=== PATIENT | male | born 1940 | race Hispanic/Latino ===

== ENCOUNTER 2019-12-28 17:08 | Outpatient (CLI) | payer MEDICARE ==
--- NOTE | 2019-12-28 18:15 | RAD ---
Frontal and lateral imaging of the thoracic spine: 12/28/2019 COMPARISON: None HISTORY: Pain FINDINGS: Multilevel disc space narrowing with degenerative endplate change and anterior osteophyte f ormation noted within the cervical spine. Thoracic pedicles appear intact on frontal imaging. No significant anterolisthesis or retrolisthesis. No acute fracture is seen within the thoracic spine. IMPRESSION: Degenerative change as above.
--- NOTE | 2019-12-28 18:17 | RAD ---
Lumbar spine 3 views: 12/28/2019 COMPARISON: 08/23/2016 HISTORY: Back pain FINDINGS: Multilevel mild disc space narrowing with associated anterior osteophyte formation within t he lumbar spine, most prominent at L2-3. Multilevel mild lower lumbar spine facet hypertrophy. No acute fracture or evidence of dislocation. IMPRESSION: Multilevel degenerative change within the lumbar spine, not significantly changed when co mpared to the prior exam. No acute osseous abnormality. If there are radicular symptoms, lumbar spine MRI may be beneficial.
== END 2019-12-28 17:09 | disposition home or self-care (01) ==
LOC: MADRAD 17:08
PROVIDERS: ATTEND Family Medicine
DX: M54.9 Dorsalgia, unspecified (principal); M47.816 Spondylosis without myelopathy or radiculopathy, lumbar region; M50.30 Other cervical disc degeneration, unspecified cervical region; M25.78 Osteophyte, vertebrae
CPT/HCPCS: 72072; 72100

== ENCOUNTER 2021-09-04 12:16 | Outpatient (CLI) | payer MEDICARE | END 2021-09-04 12:17 | disposition home or self-care (01) | LOC: MADLAB 12:16 | PROVIDERS: ATTEND Family Medicine | DX: R41.3 Other amnesia (principal); R22.0 Localized swelling, mass and lump, head | CPT/HCPCS: 70450 ==

== ENCOUNTER 2023-08-14 15:48 | Emergency (ER) | payer OTHER ==
[~2023-08-14 15:48] MED LIST: Iopamidol 370 76% 100 ML VIAL ONE
[2023-08-14 16:24] LABS: #Basophils 0.1 thou/uL (0.0-0.2); #Eosinphils 0.2 thou/uL (0.0-0.7); #Lymphocytes 1.8 thou/uL (1.20-3.40); #Monocytes 0.6 thou/uL (0.11-0.59); #Neutrophils 5.7 thou/uL (1.40-6.50); %Basophils 1.1 % (0.0-1.0); %Eosinophils 2.4 % (0.0-10.0); %Lymphocytes 21.6 % (21.0-51.0); %Monocytes 6.7 % (0.0-10.0); %Neutrophils 68.3 % (42.0-75.0); Hematocrit 47.4 % (42.0-52.0); Hemoglobin 15.7 g/dL (14.0-18.0); Mean Corpuscular HGB CONC 33.1 g/dL (32.0-36.0); Mean Corpuscular Hemoglobin 31.4 pg (27.0-31.0); Mean Corpuscular Volume 94.7 fl (78.0-98.0); Mean Platelet Volume 10.8 fL (7.4-10.4); Platelet Count 224 10x3/uL (130-400); RBC Distribution Width 12.5 % (11.5-14.5); Red Blood Cell (RBC) Count 5.01 mill/uL (4.70-6.10); White Blood Cell (WBC) Count 8.3 10x3/uL (4.8-10.8)
[2023-08-14 16:38] LABS: ALT (SGPT) 15 U/L (8-55); AST (SGOT) 20 U/L (5-34); Albumin 4.4 g/dL (3.4-4.8); Alkaline Phosphatase 100 U/L (40-110); Anion Gap 17 mmol/L (10-20); BUN (Urea Nitrogen) 14 mg/dL (8.4-25.7); Bilirubin, Total 0.5 mg/dL (0.2-1.2); Calc. Creatinine Clearance 0 mL/min (70-130); Calcium 9.7 mg/dL (7.8-10.44); Carbon Dioxide 25 mmol/L (23-31); Chloride 104 mmol/L (98-107); Estimated GFR 70; Glucose 89 mg/dL (83-110); Magnesium 2.3 mg/dL (1.6-2.6); Potassium 4.2 mmol/L (3.5-5.1); Protein, Total 7.4 g/dL (5.8-8.1); Sodium 142 mmol/L (136-145)
[2023-08-14 16:39] LABS: Troponin I Less than 0.010 ng/mL (< 0.028)
[2023-08-14 18:10] LABS: Bilirubin Negative (Negative); Blood, Urine Negative (Negative); Clarity Clear (Clear); Glucose, Urine (Dipstick) Negative (Negative); Ketone, Urine Negative (Negative); Leukocyte Negative (Negative); Nitrite Negative (Negative); Protein, Urine (Dipstick) Negative (Neg-Trace); Urobilinogen 0.2 mg/dL (Less than 2)
[2023-08-14 18:11] LABS: CAUTI Indications for Culture Pelvic or flank pain
[2023-08-14 18:14] LABS: Bacteria/HPF Rare-Few HPF (None Seen); RBC/HPF 0-3 HPF (0-3); Squamous Epithelial None Seen HPF (0-3); Urine Culture Reflex No No; WBC/HPF None Seen HPF (0-3)
[2023-08-14] MEDS ORDERED: Bupivacaine PF 0.5% 30 ML VIAL ONE (20:04)
== END 2023-08-14 18:49 | disposition home or self-care (01) ==
LOC: MADERS 15:48
DX: T16.1XXA Foreign body in right ear, initial encounter (principal); I66.03 Occlusion and stenosis of bilateral middle cerebral arteries; R53.1 Weakness; R42 Dizziness and giddiness; E11.9 Type 2 diabetes mellitus without complications; F03.90 Unspecified dementia, unspecified severity, without behavioral disturbance, psychotic disturbance, mood disturbance, and anxiety; Z79.899 Other long term (current) drug therapy
CPT/HCPCS: 36416; 69200; 70496; 70498; 71045; 80053; 81001; 83735; 83880; 84484; 85025; 93005; Q9967; S0020

== ENCOUNTER 2024-03-08 12:20 | Emergency (ER) | payer OTHER ==
[2024-03-08] MEDS ORDERED: hydrALAZINE 10 MG TAB ONE (12:47)
[2024-03-08 13:03] LABS: Bilirubin Negative (Negative); Blood, Urine Negative (Negative); Glucose, Urine (Dipstick) Negative (Negative); Ketone, Urine Negative (Negative); Leukocyte Negative (Negative); Nitrite Negative (Negative); Protein, Urine (Dipstick) Negative (Neg-Trace); Urobilinogen 0.2 mg/dL (Less than 2)
[2024-03-08 13:09] LABS: Bacteria/HPF Rare-Few HPF (None Seen); CAUTI Indications for Culture Dysuria,urgency,freq; Clarity Clear (Clear); Mucous/LPF Few LPF (<2+); RBC/HPF None Seen HPF (0-3); Squamous Epithelial 0-3 HPF (0-3); WBC/HPF 0-3 HPF (0-3)
[2024-03-08 13:10] LABS: Urine Culture Reflex No No
== END 2024-03-08 13:58 | disposition home or self-care (01) ==
LOC: MADERS 12:20
DX: B37.42 Candidal balanitis (principal); E11.9 Type 2 diabetes mellitus without complications; Z79.82 Long term (current) use of aspirin
CPT/HCPCS: 81001; 99283

== ENCOUNTER 2024-03-25 16:13 | Emergency (ER) | payer OTHER ==
[2024-03-25] MEDS ORDERED: Acetaminophen 500 MG TAB ONE (18:01)
== END 2024-03-25 18:05 | disposition home or self-care (01) ==
LOC: MADERS 16:13
DX: M62.830 Muscle spasm of back (principal); E11.9 Type 2 diabetes mellitus without complications; Z79.82 Long term (current) use of aspirin
CPT/HCPCS: 72170

== ENCOUNTER 2024-05-24 21:43 | Emergency (ER) | payer OTHER ==
[2024-05-25] MEDS ORDERED: Sodium Chloride 0.9% 1,000 ML ONE ×2 (00:31→02:33)
[2024-05-25 00:36] LABS: Hemoglobin 13.2 g/dL (14.0-18.0); Mean Corpuscular HGB CONC 31.6 g/dL (32.0-36.0); Mean Corpuscular Hemoglobin 29.5 pg (27.0-31.0); Mean Corpuscular Volume 93.4 fl (78.0-98.0); Mean Platelet Volume 8.9 fL (7.4-10.4); Platelet Count 206 10x3/uL (130-400); RBC Distribution Width 12.2 % (11.5-14.5); Red Blood Cell (RBC) Count 4.49 mill/uL (4.70-6.10); White Blood Cell (WBC) Count 13.6 10x3/uL (4.8-10.8)
[2024-05-25 00:55] LABS: Troponin I 0.016 ng/mL (< 0.028)
[2024-05-25 00:58] LABS: ALT (SGPT) 251 U/L (8-55); AST (SGOT) 461 U/L (5-34); Albumin 3.6 g/dL (3.4-4.8); Alkaline Phosphatase 387 U/L (40-110); Anion Gap 17 mmol/L (10-20); BUN (Urea Nitrogen) 16 mg/dL (8.4-25.7); Bilirubin, Total 2.2 mg/dL (0.2-1.2); Calc. Creatinine Clearance 0 mL/min (70-130); Calcium 8.7 mg/dL (7.8-10.44); Carbon Dioxide 20 mmol/L (23-31); Chloride 107 mmol/L (98-107); Estimated GFR 74; Globulin 2.4 g/dL (2.4-3.5); Glucose 187 mg/dL (83-110); Lipase 47 U/L (8-78); Potassium 3.7 mmol/L (3.5-5.1); Sodium 140 mmol/L (136-145)
[2024-05-25 01:00] LABS: Band 2 % (5-11); Eosinophils 5 % (0-10); Lymphocytes 1 % (21-51); MDiff Complete? YES; Monocytes 3 % (0-10); Neutrophil 89 % (42-75)
[2024-05-25] MEDS ORDERED: Piperacillin/Tazobactam 3.375 GM VIAL ONE (04:01)
[2024-05-25] MEDS ORDERED: Sodium Chloride 0.9% 100 ML ONE (04:04)
[2024-05-25 04:39] LABS: Bilirubin Small (Negative); Blood, Urine Trace (Negative); Clarity Clear (Clear); Glucose, Urine (Dipstick) Negative (Negative); Ketone, Urine Negative (Negative); Leukocyte Negative (Negative); Nitrite Negative (Negative); Protein, Urine (Dipstick) Negative (Neg-Trace); pH, Urine 5.5 (5.0-9.0)
[2024-05-25 04:44] LABS: CAUTI Indications for Culture Alt mental st,lethar; RBC/HPF 0-3 HPF (0-3); Specific Gravity, Urine 1.035 (1.002-1.036); Squamous Epithelial 0-3 HPF (0-3); WBC/HPF None Seen HPF (0-3)
[2024-05-25 04:45] LABS: Urine Culture Reflex No No
== END 2024-05-25 04:45 | disposition short-term general hospital (02) ==
LOC: MADERS 21:43
DX: B17.9 Acute viral hepatitis, unspecified (principal); E11.9 Type 2 diabetes mellitus without complications; I10 Essential (primary) hypertension; Z87.891 Personal history of nicotine dependence; Z79.82 Long term (current) use of aspirin
CPT/HCPCS: 36556; 71045; 74177; 80053; 81001; 83690; 84484; 85025; 93005; 96365; J2543; Q9967

== ENCOUNTER 2024-09-01 22:19 | Inpatient (IN) | payer OTHER ==
[2024-09-02 00:01] VITALS: BMI 18.3
[2024-09-02] MEDS ORDERED: Glucagon 1 MG/ML KIT IM PRN (05:26)
[2024-09-02] MEDS ORDERED: Dextrose 50% Abboject 50 ML SYRINGE SLOW IVP PRN (05:26)
[2024-09-02] MEDS ORDERED: HumaLOG 300 UNITS/3 ML VIAL SC PRN (05:26)
[2024-09-02] MEDS ORDERED: Ondansetron ODT 4 MG TAB PO PRN (05:26)
[2024-09-02 08:25] VITALS: BMI 18.3
[2024-09-02] MEDS: Aspirin 81 mg Enteric Coated Tablet PO SCH (08:26)
[2024-09-02] MEDS: Clopidogrel Bisulfate 75 MG TAB PO SCH (08:27)
[2024-09-02] MEDS: Ferrous Sulfate 325 MG TAB PO SCH (08:27)
[2024-09-02] MEDS: Enoxaparin 30 MG (0.3 mL) SYRINGE SC SCH (08:27)
[2024-09-02] MEDS: FLU (Fluarix Triv) TS24-25(6MOS UP)/PF 45 MCG/0.5 ML Syringe ONE (14:32)
[2024-09-02] MEDS: FLU (Fluad Triv) TS24-25 (65UP)/MF59C/PF 45 MCG/0.5 ML Syringe IM ONE (19:29)
[2024-09-02] MEDS: Mirtazapine 15 MG TAB PO SCH (21:12)
[2024-09-02] MEDS: Acetaminophen 160 MG (5 ML) UDCUP PO PRN (21:12)
[2024-09-03 06:17] LABS: Hematocrit 41.1 % (42.0-52.0); Hemoglobin 13.4 g/dL (14.0-18.0); Platelet Count 314 10x3/uL (130-400)
[2024-09-04] MEDS: Polyethylene Glycol 3350 17 GM Packet PO PRN (15:57)
[2024-09-05] MEDS: Clopidogrel Bisulfate 75 MG TAB PO SCH (13:49)
[2024-09-05] MEDS: Ferrous Sulfate 325 MG TAB PO SCH (13:49)
[2024-09-06] MEDS: Clopidogrel Bisulfate 75 MG TAB PO SCH (11:30)
[2024-09-06] MEDS: Ferrous Sulfate 325 MG TAB PO SCH (11:30)
[2024-09-06] MEDS: Polyethylene Glycol 3350 17 GM Packet PO SCH (11:31)
[2024-09-06] MEDS: FLU (Fluarix Triv) TS24-25(6MOS UP)/PF 45 MCG/0.5 ML Syringe ONE (16:43)
[2024-09-07] MEDS: FLU (Fluarix Triv) TS24-25(6MOS UP)/PF 45 MCG/0.5 ML Syringe ONE (14:05)
[2024-09-11] MEDS: Acetaminophen 160 MG (5 ML) UDCUP PO PRN (10:41)
[2024-09-12 18:48] VITALS: TEMP 97.8
[2024-09-13 06:55] VITALS: BP 127/66
== END 2024-09-13 12:39 | disposition home or self-care (01) | DRG 948 ==
LOC: MADMS 22:19
PROVIDERS: ADMIT Family Medicine; ATTEND Family Medicine
DX: R53.81 Other malaise (principal); C71.9 Malignant neoplasm of brain, unspecified; E11.9 Type 2 diabetes mellitus without complications; I25.10 Atherosclerotic heart disease of native coronary artery without angina pectoris; Z95.5 Presence of coronary angioplasty implant and graft; Z95.0 Presence of cardiac pacemaker; Z90.49 Acquired absence of other specified parts of digestive tract; Z79.01 Long term (current) use of anticoagulants; M48.061 Spinal stenosis, lumbar region without neurogenic claudication; Z79.899 Other long term (current) drug therapy; G30.9 Alzheimer's disease, unspecified; F02.80 Dementia in other diseases classified elsewhere, unspecified severity, without behavioral disturbance, psychotic disturbance, mood disturbance, and anxiety; R53.1 Weakness; K59.00 Constipation, unspecified
CPT/HCPCS: 36415; 36416; 82565; 85014; 85018; 85049; J1650

== ENCOUNTER → 2024-09-28 | Emergency (ER) | payer OTHER ==
[~2024-09-28] MED LIST changes: -Iopamidol 370 76% 100 ML VIAL ONE; +Sodium Chloride 0.9% 100 ML ONE; +Sodium Chloride 0.9% 500 ML ONE; +cefTRIAXone (ROCEPHIN) 1 GM VIAL ONE
[2024-09-28 18:21] LABS: #Basophils 0.1 thou/uL (0.0-0.2); #Eosinophils 0.1 thou/uL (0.0-0.7); #Lymphocytes 2.3 thou/uL (1.20-3.40); #Monocytes 0.7 thou/uL (0.11-0.59); #Neutrophils 15.7 thou/uL (1.40-6.50); %Basophils 0.6 % (0.0-1.0); %Eosinophils 0.3 % (0.0-10.0); %Lymphocytes 12.2 % (21.0-51.0); %Monocytes 3.6 % (0.0-10.0); %Neutrophils 83.3 % (42.0-75.0); Hematocrit 56.7 % (42.0-52.0); Hemoglobin 16.9 g/dL (14.0-18.0); Mean Corpuscular HGB CONC 29.8 g/dL (32.0-36.0); Mean Corpuscular Hemoglobin 28.9 pg (27.0-31.0); Mean Platelet Volume 10.6 fL (7.4-10.4); Platelet Count 309 10x3/uL (130-400); RBC Distribution Width 13.4 % (11.5-14.5); Red Blood Cell (RBC) Count 5.84 mill/uL (4.70-6.10); White Blood Cell (WBC) Count 18.9 10x3/uL (4.8-10.8)
[2024-09-28 18:36] LABS: Troponin I 0.011 ng/mL (< 0.028)
[2024-09-28 18:55] LABS: ALT (SGPT) 18 U/L (8-55); AST (SGOT) 25 U/L (5-34); Albumin 3.2 g/dL (3.4-4.8); Alkaline Phosphatase 120 U/L (40-110); Anion Gap 24 mmol/L (10-20); BUN (Urea Nitrogen) 75 mg/dL (8.4-25.7); Bilirubin, Total 0.8 mg/dL (0.2-1.2); Calc. Creatinine Clearance 0 mL/min (70-130); Calcium 9.5 mg/dL (7.8-10.44); Carbon Dioxide 21 mmol/L (23-31); Chloride 131 mmol/L (98-107); Critical Call Chemistry NUR.JP8@1854; Estimated GFR 33; Globulin 4.1 g/dL (2.4-3.5); Glucose 123 mg/dL (83-110); Potassium 4.8 mmol/L (3.5-5.1); Protein, Total 7.3 g/dL (5.8-8.1); Sodium 171 mmol/L (136-145)
[2024-09-28 21:10] LABS: Bilirubin Small (Negative); Blood, Urine Negative (Negative); Clarity Cloudy (Clear); Glucose, Urine (Dipstick) Negative (Negative); Ketone, Urine Negative (Negative); Leukocyte Trace (Negative); Nitrite Positive (Negative); Protein, Urine (Dipstick) Trace mg/dL (Neg-Trace); Specific Gravity, Urine 1.025 (1.005-1.030); pH, Urine 5.5 (5.0-9.0)
[2024-09-28 21:12] LABS: Bacteria/HPF 3+ HPF (None Seen); CAUTI Indications for Culture Alt mental st,lethar; RBC/HPF 0-3 HPF (0-3); Squamous Epithelial 0-3 HPF (0-3)
[2024-09-28 21:13] LABS: Urine Culture Reflex Yes Yes
== END ==
LOC: MADERS 17:42
DX: E87.0 Hyperosmolality and hypernatremia (principal); N17.9 Acute kidney failure, unspecified; R86.0 Abnormal level of enzymes in specimens from male genital organs; E11.9 Type 2 diabetes mellitus without complications; I10 Essential (primary) hypertension; Z87.891 Personal history of nicotine dependence; Z95.0 Presence of cardiac pacemaker
CPT/HCPCS: 36415; 51701; 70450; 71045; 80053; 81001; 83605; 84484; 85025; 87040; 87086; 96361; 96365; 96366; 96368; J0696; J7030